=== PATIENT | male | born 1940 | race Caucasian/White ===

== ENCOUNTER 2018-05-17 06:53 | Day surgery (SDC) | payer MEDICARE, BC ==
--- NOTE | 2018-05-13 10:36 | HP ---
CHIEF COMPLAINT: Cervical spine osteophytes causing dysphagia. HISTORY OF PRESENT ILLNESS: Mr. Alvarez is a 77-year-old male who presents with symptoms of dysphagia that started 3-4 years ago which has gotten worse recently. He has visited Dr. Pineda ENT and had a video swallow study which has been completed and shows large anterior osteophytes in his cervical spi ne. He has no neurological deficits or paralysis at this time. He has no other treatment options fo r this problem other than surgery. REVIEW OF SYSTEMS: A 10-point review of systems has been completed and is otherwise negative unless stated in the above HPI. PAST MEDICAL HISTORY: Hypertension and anterior cervical osteophytes. FAMILY HISTORY: Noncontributory. SOCIAL HISTORY: He is a nonsmoker, retired, , and he has 1 child. MEDICATIONS: [place] thyroid, Rosuvastatin, calcium, losartan, potassium, omeprazole, aspirin 81, Hum fidelina, lorazepam. ALLERGIES: No known drug allergies. PHYSICAL EXAMINATION: HEENT: Normocephalic, atraumatic. Hearing is intact. Mucous membranes are moist. Trachea is midli ne. No masses are noted. Dysphagia with swallowing. Eyes: Pupils are equal and round, reactive to light. Extraocular movements are intact. Sclera is white. Nonicterus. PSYCHIATRIC: Normal mood and affect. CARDIOVASCULAR/PULMONARY: No cyanosis or clubbing noted. Intact pulses. Breathing room air. EXTREMITIES: Motor upper and lower extremities, 5/5 strength bilateral with no focal muscular defici ts or sensory deficits. NEUROLOGIC: Gait and station are normal, alert and oriented x3. Normal fund of knowledge. IMAGING: Barium swallow study at [facility] shows multiple osteophytes in the cervical spine. ASSESSMENT: Dysphagia and osteophytes. PLAN: Dr. Banerjee has offered to remove the anterior osteophytes that are causing the dysphagia. We have discussed the risks and benefits and alternatives, possible complications with Mr. Alvarez. Po ssible risks include, but are not limited to bleeding, infection, nerve damage, weakness, paralysis, ventilator dependence, wheelchair dependence, loss of vision, or cardiopulmonary complications of ane sthesia or . Long-term complications have been discussed, but are not limited to spinal instabi lity or future surgery. The patient states his understanding and is willing to proceed with surgery. The patient should not be on aspirin for at least a week.
[2018-05-17] MEDS ORDERED: Sodium Chloride 0.9% 10 ML ONE (08:04)
[2018-05-17] MEDS ORDERED: Thrombin 5000 UNITS/5 ML VIAL ONE (08:04)
[2018-05-17 08:10] LABS: #Basophils 0.1 thou/uL (0.0-0.2); #Eosinphils 0.3 thou/uL (0.0-0.7); #Lymphocytes 3.2 thou/uL (1.20-3.40); #Monocytes 0.8 thou/uL (0.11-0.59); #Neutrophils 4.2 thou/uL (1.40-6.50); %Basophils 1.1 % (0.0-1.0); %Eosinophils 3.6 % (0.0-10.0); %Lymphocytes 36.6 % (21.0-51.0); %Monocytes 9.3 % (0.0-10.0); %Neutrophils 49.3 % (42.0-75.0); Hemoglobin 14.3 g/dL (14.0-18.0); Mean Corpuscular HGB CONC 33.6 g/dL (32.0-36.0); Mean Corpuscular Hemoglobin 31.5 pg (27.0-31.0); Mean Corpuscular Volume 93.8 fL (78.0-98.0); Mean Platelet Volume 6.4 fL (7.4-10.4); Platelet Count 253 thou/uL (130-400); RBC Distribution Width 11.4 % (11.5-14.5); Red Blood Cell (RBC) Count 4.53 mill/uL (4.70-6.10); White Blood Cell (WBC) Count 8.6 thou/uL (4.8-10.8)
[2018-05-17 08:17] LABS: Prothrombin Time 13.2 SEC (12.0-14.7)
[2018-05-17 08:21] LABS: Anion Gap 10 mmol/L (10-20); BUN (Urea Nitrogen) 9 mg/dL (8.4-25.7); Calc. Creatinine Clearance 61 mL/min (70-130); Calcium 9.8 mg/dL (7.8-10.44); Carbon Dioxide 31 mmol/L (23-31); Chloride 104 mmol/L (98-107); Estimated GFR-MDRD 69; Glucose 104 mg/dL (83-110); Potassium 4.2 mmol/L (3.5-5.1); Sodium 141 mmol/L (136-145)
[2018-05-17] MEDS ORDERED: CEFAZOLIN/Water 2 GM/20 ML SYRINGE ONE (08:23)
[2018-05-17] MEDS ORDERED: Fentanyl 100 MCG/2 ML VIAL ONE ×2 (09:25→10:20)
[2018-05-17] MEDS ORDERED: HYDROmorphone 0.5 MG/0.5 ML SYRINGE ONE (11:40)
--- NOTE | 2018-05-17 12:06 | OP ---
DATE OF PROCEDURE: 05/17/2018 SURGEON: Katelynn Banerjee M.D. NURSING STUDENT: Sendy Quintana PA-C. PREOPERATIVE INDICATION: Prevent further swallowing difficulty. 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 OPERATIVE PROCEDURE: Open anterior cervical incision, removal of anterior osteophytes at C3, C4, C5, C6, C7. PREOPERATIVE MEDICATION: Ancef 2 grams IV. DRAIN NUMBER: Zero. DRAIN TYPE: None. OPERATIVE DICTATION: The patient was brought to the operating room. General endotracheal anesthesia was induced. The head was supported by a soft headrest and a lateral fluoro radiograph was used to plan our incision. The right side of the neck was sterilely prepped and draped. We opened with a 10 blade knife. We controlled bleeding with bipolar cautery and dissected sharply to the platysma. We cut this muscle in line with our incision and continued our dissection medial to the sternocleidomas toid and lateral to the trachea and the esophagus. We arrived at the prevertebral space. We placed a marker at C4-5 and took a lateral fluoro radiograph to confirm the levels upon which we were operat ing. We then carefully moved the longus colli muscles out of the way and placed a self-retaining ret ractor. We can visualize the large osteophytes from C3 and osteophytes from C3 all the way to C7. U sing bone rongeurs to remove the anterior osteophytes. We used a high-speed drill with a loly bur to drill the anterior surface of the vertebral bodies flat and took a before and after radiograph to confirm adequate removal of anterior osteophytes. We irrigated copiously with bacitracin irrigation . We controlled bleeding with gentle bipolar cautery. Hemostasis was excellent. We closed the woun d in anatomic layers. We applied a sterile dressing. This was a clean case and no contamination.
[2018-05-17] MEDS ORDERED: Dexamethasone 20 MG/5 ML VIAL ONE (15:00)
[2018-05-17] MEDS ORDERED: Ondansetron HCl/PF 4 MG/2 ML Vial ONE (15:00)
[2018-05-17] MEDS ORDERED: PHENYLEPHRINE-NS 100 MCG/ML 10 ML SYRINGE ONE (15:00)
[2018-05-17] MEDS ORDERED: PROPOFOL 200 MG/20 ML VIAL ONE (15:00)
[2018-05-17] MEDS ORDERED: Lidocaine 1% PF 5 ML VIAL ONE (15:00)
[2018-05-17] MEDS ORDERED: Metoclopramide HCl 10 MG/2 ML VIAL ONE (15:00)
[2018-05-17] MEDS ORDERED: Naloxone HCl 0.4 mg/ml Vial ONE (15:00)
[2018-05-17] MEDS ORDERED: Esmolol 100 MG/10 ML VIAL ONE (15:00)
[2018-05-17] MEDS ORDERED: Glycopyrrolate 0.2 MG/ML 5 ML SYRINGE ONE (15:00)
== END 2018-05-17 16:30 | disposition home or self-care (01) ==
LOC: SDC 06:53
PROVIDERS: ATTEND Neurological Surgery
PROC: 0PB30ZZ Excision of Cervical Vertebra, Open Approach (ICD-10-PCS; principal; 2018-05-17)
DX: M35.3 Polymyalgia rheumatica (principal); M25.78 Osteophyte, vertebrae; I10 Essential (primary) hypertension; Z79.82 Long term (current) use of aspirin; Z79.4 Long term (current) use of insulin; Z79.899 Other long term (current) drug therapy
CPT/HCPCS: 36415; 76001; 80048; 85025; 85610; 85730; A4216; J0131; J1100; J1170; J2001; J2310; J2405; J2704; J2765; J3010; J3490

== ENCOUNTER 2019-05-10 03:49 | Inpatient (IN) | payer MEDICARE, BC ==
[2019-05-10] MEDS ORDERED: Acetaminophen 650 MG Suppository PR PRN (04:31)
[2019-05-10] MEDS ORDERED: Ondansetron ODT 4 MG TAB PO PRN (04:31)
[2019-05-10] MEDS ORDERED: Ondansetron PF 4 MG/2 ML Vial IVP PRN (04:31)
[2019-05-10] MEDS ORDERED: Acetaminophen 325 MG TAB PO PRN (04:31)
[2019-05-10 04:51] LABS: Troponin I Less than 0.010 ng/mL (< 0.028)
--- NOTE | 2019-05-10 06:16 | HP ---
PRIMARY CARE DOCTOR: Maximilian Ha MD CODE STATUS: Full code. TIME OF EVALUATION: CHIEF COMPLAINT: Chest pain. HISTORY OF PRESENT ILLNESS: This is a 78-year-old male patient, past medical history of hypothyroidism, hyperlipidemia, hypertension, chronic back pain, came to the hospital after having chest pain that was in the middle of the chest, 2/10, with no clear triggers, no alleviating factors, no specific radiation. The patient had the symptoms for a couple of seconds and then relieved by itself, reported as mild. The patient has no significant personal history of heart problems, however, blood pressure was high when he had the symptoms and also he reported his father with some coronary artery disease at old age. REVIEW OF SYSTEMS: CONSTITUTIONAL: No fever, chills, or generalized weakness. RESPIRATORY: No cough, sputum production, or shortness of breath. CARDIOVASCULAR: The patient has chest pain. No palpitation. GASTROINTESTINAL: No nausea, vomiting, diarrhea, or abdominal pain. SOURCING CONSULTANT: No dizziness, headache, or feeling lightheaded. GENITOURINARY: No burning on urination. EXTREMITIES: No leg swelling. All other systems were reviewed and negative except for the findings mentioned above. PAST MEDICAL HISTORY: As mentioned in the HPI. FAMILY HISTORY: Father with coronary artery disease, at old age. SOCIAL HISTORY: No alcohol, no drugs. Former smoker. PSYCHIATRIC HISTORY: Anxiety. PAST SURGICAL HISTORY: Tonsillectomy, spinal surgery. KNOWN ALLERGIES: No known drug allergies. REPORTED MEDICATIONS: 1. Ativan. 2. [place] Thyroid. 3. Omeprazole. 4. Crestor. 5. Losartan. 6. Humira. 7. Fluticasone. 8. Aspirin. PHYSICAL EXAMINATION: VITAL SIGNS: On presentation, blood pressure of 189/89 with heart rate , temperature 97.3. Pain was 0/10. Oxygen saturation was 98% on room air. GENERAL APPEARANCE: The patient is alert, oriented, in no acute distress. HEENT: Eyes, normal conjunctivae. Moist oral mucosa. Anicteric. No JVD. RESPIRATORY: Bilateral air entry. No rales. No wheezes. Symmetric expansion. CARDIOVASCULAR: Normal rate, regular rhythm. No murmurs. No gallop. No edema. ABDOMEN: Soft, normal bowel sounds. MUSCULOSKELETAL: Baseline range of motion and strength. No tenderness. SKIN: Warm, intact. No pallor. No rash. No redness. Capillary refill seems to be intact. NEURO: No evidence of any new focal weakness. Cranial nerves seem to be intact. PSYCHIATRIC: The patient is in good mood. No anxiety. Optimal judgment. IMAGING STUDIES: EKG was reviewed. The patient has normal sinus rhythm with a rate of 61 with no ectopy. Conduction was normal. ST-segment was normal. Chest x-ray was reviewed, it was negative. LABORATORY DATA: Reviewed. The patient has white count 10.4, hemoglobin 14.4, MCV 91 with platelet count 260. No coagulation was done. Chemistry; sodium 142, potassium 4.3, chloride 105, carbon dioxide 30, anion gap 11, BUN 15, GFR 65, creatinine 1.23, GFR of 57, and glucose 124, calcium 9.4, total bilirubin 0.2, direct bilirubin 0.2, AST 21, ALT 20, alkaline phosphatase is 46. CK 59. Troponin was negative x2. ASSESSMENT AND PLAN: The patient will be placed in the hospital with following medical problems. 1. Chest pain, rule out acute coronary syndrome. The patient has 2 troponins that are negative. The patient will go for a stress test in the morning. We will keep n.p.o. for now. Any further plan, will be dependent on result of the stress test. 2. Uncontrolled hypertension. We will reconcile home medications. We might need to use p.r.n. medications for optimal control. 3. Hypothyroidism. Continue hormone replacement. 4. Gastroesophageal reflux disease, reconcile home medications. 5. Hyperlipidemia. Low-cholesterol diet is advised. Reconcile home medications. 6. Deep venous thrombosis prophylaxis. Job ID: [id number]
[2019-05-10] MEDS ORDERED: Acetaminophen 325 MG TAB ONE (07:58)
[2019-05-10 08:20] LABS: Troponin I 0.016 ng/mL (< 0.028)
--- NOTE | 2019-05-10 13:10 | NM ---
CARDIAC SPECT: CLINICAL HISTORY: 78-year-old male with chest pain, hypertension, and dyslipidemia. TECHNIQUE: A myocardial perfusion scan was performed using the single isotope one day protocol with technetium-9 9m sestamibi. 10 mCi were injected intravenously for the rest exam followed by 31 mCi for the stress exam. Exercise stress was monitored and interpreted by Dr. Rubi. FINDINGS: Homogeneous tracer distribution is seen in the myocardial segments on the rest images. The stress marcia ges demonstrate decreased tracer localization in the distal anterior wall. GATED SPECT LVEF: 71%. WALL MOTION EXAM: Normal. IMPRESSION: Completely reversible distal anterior wall ischemia. POS: OFF
[2019-05-10] MEDS ORDERED: Lorazepam 0.5 MG TAB PO PRN (15:52)
[2019-05-10 15:58] VITALS: BMI 24.5
[2019-05-10 17:25] LABS: Troponin I Less than 0.010 ng/mL (< 0.028)
[2019-05-10] MEDS ORDERED: Communication Order-Pharmacy FS SCH (17:30)
--- NOTE | 2019-05-10 22:56 | CON ---
DATE OF CONSULTATION: HISTORY OF PRESENT ILLNESS: The patient is a pleasant 78-year-old gentleman who presents for evaluation of chest discomfort. The patient has no previous cardiac history. The patient presented to the emergency room with brief episodes of chest pain, these usually last only a few seconds. The patient noted that his blood pressure was elevated and he came to the emergency room for further evaluation. PAST MEDICAL HISTORY: Significant for 1. Hypertension. 2. Dyslipidemia. 3. Ankylosing spondylitis. PAST SURGICAL HISTORY: He has had a neck surgery and a tonsillectomy. SOCIAL HISTORY: He is a former smoker. ALLERGIES: HE HAS NO KNOWN DRUG ALLERGIES. MEDICATIONS: On admission included; 1. Losartan 25 mg one tablet daily. 2. Crestor 20 mg one tablet daily. 3. [place] Thyroid 30 mg one tablet daily. 4. Aspirin 81 daily. 5. Omeprazole 1 tablet daily. FAMILY HISTORY: There is a positive family history, brother had sudden cardiac . PHYSICAL EXAMINATION: GENERAL: This is a well-developed gentleman, in no acute distress. VITAL SIGNS: Blood pressure 172/79. NECK: No jugular venous distention. LUNGS: Clear to auscultation. HEART: Regular rate and rhythm. Normal S1, S2. No murmurs. ABDOMEN: Nondistended. EXTREMITIES: Show no edema. VASCULAR: Radial pulses 2+. LABORATORY DATA: His white blood cell count was 10.4, hemoglobin 14.4, hematocrit 43.4, platelets 260. Sodium was 142, potassium 4.3, chloride 105, bicarbonate 30, BUN 15, creatinine 1.23. Troponin less than 0.01. His EKG revealed him to have normal sinus rhythm with left axis deviation. His Cardiolite stress test, the patient exercised on a Reagan protocol, he developed [address] depression suggestive of ischemia. Cardiolite images revealed him to have normal left ventricular ejection fraction 71% with evidence of anterior ischemia. IMPRESSION: 1. Chest pain, atypical. 2. Abnormal stress test suggestive of severe ischemia. 3. Hypertension. 4. Dyslipidemia. 5. Ankylosing spondylitis. This gentleman presents with atypical chest pain because he had an early positive stress test with evidence of ischemia. I discussed the option of proceeding with cardiac catheterization and the patient agrees to proceed. The risks involved with the procedure including ID, bleeding, stroke, cardiac arrhythmias, and cardiac been explained to the patient. PLAN: Proceed with cardiac catheterization. Job ID: [id number]
[2019-05-11 05:31] LABS: #Basophils 0.1 thou/uL (0.0-0.2); #Eosinphils 0.5 thou/uL (0.0-0.7); #Lymphocytes 3.8 thou/uL (1.20-3.40); #Monocytes 0.9 thou/uL (0.11-0.59); #Neutrophils 5.6 thou/uL (1.40-6.50); %Eosinophils 4.8 % (0.0-10.0); %Lymphocytes 34.8 % (21.0-51.0); %Monocytes 8.5 % (0.0-10.0); %Neutrophils 50.9 % (42.0-75.0); Hemoglobin 14.4 g/dL (14.0-18.0); Mean Corpuscular Hemoglobin 30.9 pg (27.0-31.0); Mean Corpuscular Volume 93.7 fL (78.0-98.0); Mean Platelet Volume 6.4 fL (7.4-10.4); Platelet Count 276 thou/uL (130-400); RBC Distribution Width 12.2 % (11.5-14.5); Red Blood Cell (RBC) Count 4.68 mill/uL (4.70-6.10); White Blood Cell (WBC) Count 10.9 thou/uL (4.8-10.8)
[2019-05-11 05:49] LABS: Anion Gap 11 mmol/L (10-20); BUN (Urea Nitrogen) 12 mg/dL (8.4-25.7); Calc. Creatinine Clearance 62 mL/min (70-130); Calcium 9.4 mg/dL (7.8-10.44); Carbon Dioxide 28 mmol/L (23-31); Chloride 107 mmol/L (98-107); Estimated GFR-MDRD 66; Glucose 92 mg/dL (83-110); Potassium 3.9 mmol/L (3.5-5.1); Sodium 142 mmol/L (136-145)
[2019-05-11] MEDS: Losartan 25 MG TAB PO SCH (06:24)
[2019-05-11] MEDS ORDERED: Lidocaine 1% w/Epinephrine 1:100K 20 ML VIAL ONE (07:01)
[2019-05-11] MEDS ORDERED: Lidocaine 1% (PF) 30 ML VIAL ONE (07:02)
[2019-05-11] MEDS ORDERED: Rosuvastatin 20 MG TAB PO SCH (09:00)
[2019-05-11] MEDS ORDERED: Thyroid 30 MG TAB PO SCH (09:00)
[2019-05-11] MEDS ORDERED: Aspirin 325 MG TAB PO SCH (09:00)
[2019-05-11] MEDS ORDERED: Sodium Chloride 0.9% 200 ML IV PRN (09:06)
[2019-05-11] MEDS ORDERED: Acetaminophen/Codeine 30-300mg Tablet PO PRN ×2 (09:06)
[2019-05-11] MEDS ORDERED: Nitroglycerin 0.4 MG TAB (25 Tab Bottle) SL PRN (09:06)
[2019-05-11] MEDS ORDERED: Atropine Sulfate 1 mg/10 ml Syringe ONE (09:14)
[2019-05-11] MEDS ORDERED: Nitroglycerin 4.9 GM Bottle ONE (09:14)
[2019-05-11] MEDS ORDERED: Nitroglycerin 2% Ointment 1 INCH/1 GM Packet ONE (09:14)
[2019-05-11] MEDS ORDERED: Diazepam 5 MG TAB PO PRN (10:38)
[2019-05-11] MEDS ORDERED: Communication Order-Pharmacy FS ONE (10:38)
--- NOTE | 2019-05-11 11:35 | CON ---
DATE OF CONSULTATION: 05/11/2019 HISTORY OF PRESENT ILLNESS: Mr. Alvarez is a 78-year-old gentleman, who was admitted with fatigue and chest pain. He underwent stress testing, which was positive in his anterior wall. Cardiac catheterization had shown left main stenosis along with critical LAD diagonal disease. He also had mid PDA lesion that appears significant. I have been asked to see him and discuss coronary artery bypass grafting. PAST MEDICAL HISTORY: 1. Ankylosing spondylitis. 2. Hypertension. 3. Dyslipidemia. PAST SURGICAL HISTORY: 1. Neck surgery for a bone spur impinging on his swallowing. 2. Tonsillectomy. ALLERGIES: NONE. MEDICATIONS: At home are noted. REVIEW OF SYSTEMS: Ten-point review of systems is performed and is negative except as above. PHYSICAL EXAMINATION: GENERAL: This is a well-developed, well-nourished, thin gentleman, resting comfortably in the recovery area. VITAL SIGNS: Heart rate is 85 and regular, blood pressure is 130/72. Height is 5 feet and 10 inches, weight is 171 pounds, and BSA is 1.96. HEENT: Sclerae are nonicteric. Pupils are equal and round bilaterally. NECK: Supple. He has no carotid bruits. His neck is freely mobile and extends well. CHEST: Clear bilaterally. HEART: Heart rhythm is regular. ABDOMEN: Soft and nontender without mass. EXTREMITIES: No edema. VASCULAR: He has palpable carotid, radial, femoral, and dorsalis pedis pulses bilaterally. VENOUS: There are no venous varicosities or venous stasis changes. PSYCHIATRIC: He is awake, alert, and oriented to person, place, and time. IMAGING DATA: Chest x-ray is clear bilaterally with normal cardiac silhouette. LABORATORY: Hemoglobin is 14.4, platelet count is 276,000. Creatinine is 1.09, potassium is 3.9. ASSESSMENT AND PLAN: This is a 78-year-old gentleman with left main stenosis and critical left ascending descending diagonal disease with anterior wall ischemia on nuclear scan. The risks, benefits, and options of coronary artery bypass grafting were discussed with he and his family and they are agreeable to proceed. Potential distal targets include left ascending descending, diagonal, PDA, and ramus intermedius. Job ID: [id number] [facility]
[2019-05-11] MEDS ORDERED: Iopamidol 370 76% 100 ML VIAL ONE (12:56)
[2019-05-11] MEDS ORDERED: Nitroglycerin 2% Ointment 1 INCH/1 GM Packet TOP SCH (13:15)
--- NOTE | 2019-05-11 15:51 | PDOC.PN ---
- Subjective Encounter Start Date: 05/11/19 Encounter Start Time: 15:50 Patient lying in bed with family at bedside. He is s/p heart cath which showed multi CAD. He denies current chest pain, palpitations or shortness of breath. Dr Bruno consulted who plans for CABG tomorrow - Objective Resuscitation Status - Order Detail: 05/10/19 04:31 Resuscitation Status Routine Resuscitation Status: FULL: Full Resuscitation MAR Reviewed: Yes Vital Signs & Weight: Vital Signs (12 hours) Temp Pulse Resp BP Pulse Ox 05/11/19 11:42 97.3 F L 67 16 120/74 100 05/11/19 11:30 73 16 132/70 05/11/19 07:20 97.5 F L 73 16 132/70 97 05/11/19 04:28 98.4 F 87 18 112/65 98 Weight Admit Weight 171 lb Weight 171 lb I&O: 05/10/19 05/11/19 05/12/19 06:59 06:59 06:59 Intake Total 930 Balance 930 Result Diagrams: 05/11/19 04:40 05/11/19 04:40 Radiology Reviewed by me: Yes Phys Exam - Physical Examination Constitutional: NAD HEENT: moist MMs, oral pharynx no lesions Neck: no nodes, full ROM Respiratory: no wheezing, clear to auscultation bilateral Cardiovascular: RRR, no significant murmur Gastrointestinal: soft, positive bowel sounds Musculoskeletal: no edema, pulses present Neurological: non-focal, moves all 4 limbs Psychiatric: normal affect, A&O x 3 Skin: no rash, cap refill <2 seconds Dx/Plan (1) CAD (coronary artery disease) Code(s): I25.10 - ATHSCL HEART DISEASE OF [place] CORONARY ARTERY W/O ANG PCTRS Status: Acute (2) Chest pain Code(s): R07.9 - CHEST PAIN, UNSPECIFIED Status: Acute (3) HTN (hypertension) Code(s): I10 - ESSENTIAL (PRIMARY) HYPERTENSION Status: Acute (4) HLD (hyperlipidemia) Code(s): E78.5 - HYPERLIPIDEMIA, UNSPECIFIED Status: Acute (5) Ankylosing spondylitis Code(s): M45.9 - ANKYLOSING SPONDYLITIS OF UNSPECIFIED SITES IN SPINE Status: Acute - Plan cont current plan of care, plan discussed w/ family * Continue medical management * Cardiology following along with CT surgery * Plan for CABG tomorrow with patient multi CAD * Currently stable * Monitor BP and other vitals * Recheck CBC and BMP in am * Transition patient to inpatient as he will undergo CABG * Further management and disposition pending CABG and patient progress
[2019-05-11] MEDS: Nitroglycerin 2% Ointment 1 INCH/1 GM Packet TOP SCH ×2 (18:36→23:20)
[2019-05-11] MEDS ORDERED: Oxymetazoline HCl 0.05% ( 15 ML ) NASAL PRN (19:51)
[2019-05-11] MEDS ORDERED: Oxymetazoline HCl 0.05% (30 ML BOT) NS PRN (21:30)
[2019-05-12] MEDS: Losartan 25 MG TAB PO SCH (06:02)
[2019-05-12] MEDS: Nitroglycerin 2% Ointment 1 INCH/1 GM Packet TOP SCH ×2 (06:03→19:18)
[2019-05-12] MEDS ORDERED: Bupivacaine HCl 0.5%/Epinephrine 1:200,000/PF 30 ml Vial ONE (06:30)
[2019-05-12] MEDS ORDERED: Dexamethasone 4 mg/ml Vial ONE (06:30)
[2019-05-12] MEDS ORDERED: Albumin 5% 500 ML ONE (06:30)
[2019-05-12] MEDS ORDERED: Heparin 10,000 UNITS/1 ML VIAL 30,000 UNITS in Sodium Chloride 0.9% 1,000 ML FS SCH (06:45)
[2019-05-12] MEDS ORDERED: Midazolam HCl 5 mg/5 ml Vial ONE (06:51)
[2019-05-12] MEDS ORDERED: Fentanyl 250 MCG/5 ML VIAL ONE ×2 (06:51)
[2019-05-12] MEDS ORDERED: Midazolam HCl 2 mg/2 ml Vial ONE ×2 (07:07→07:09)
[2019-05-12] MEDS ORDERED: CEFAZOLIN 2 GM in Premix Bag 1 BAG IVPB SCH (07:30)
[2019-05-12] MEDS ORDERED: Phenylephrine HCL 10 MG/ML VIAL ONE (09:11)
[2019-05-12 11:44] LABS: Base Excess (BEa) -4.7 mEq/L (-2.0 to +3.0); CO2 Tension 41.3 mmHg (35.0-45.0); Calcium, Ionized 1.05 mmol/L (1.12-1.30); Carboxyhemoglobin (COHb) 0.6 gm% (0.0-3.0); Hemoglobin (Hb) 12.9 g/dL (14.0-18.0); O2 Tension (PaO2) 260.2 mmHg (> 70.0); Potassium - ABG Lab 3.89 mmol/L (3.70-5.30); pH, Arterial 7.33 (7.35-7.45)
[2019-05-12 11:45] LABS: ALV-art Gradient 115.975 (0-20); Puncture Site LINE
[2019-05-12] MEDS ORDERED: Mag-Al 1200 mg/1200 mg/30 ML UDCUP PO PRN (12:03)
[2019-05-12] MEDS ORDERED: Fentanyl 100 MCG/2 ML VIAL SLOW IVP PRN ×2 (12:03)
[2019-05-12] MEDS ORDERED: Ondansetron PF 4 MG/2 ML Vial IVP PRN (12:03)
[2019-05-12] MEDS ORDERED: Bisacodyl 5 MG TAB PO PRN (12:03)
[2019-05-12] MEDS ORDERED: Potassium Chloride 20 MEQ/100 ML PREMIX BAG IVPB PRN (12:03)
[2019-05-12] MEDS ORDERED: hydrALAZINE 20 MG/ML VIAL SLOW IVP PRN (12:03)
[2019-05-12] MEDS ORDERED: Bisacodyl 10 MG SUPP PR PRN (12:03)
[2019-05-12] MEDS ORDERED: Nitroglycerin 50 MG/250 ML BOT 250 ML IVPB PRN (12:03)
[2019-05-12] MEDS ORDERED: HYDROcodone/Acetaminophen 5/325 mg Tablet PO PRN ×2 (12:03)
[2019-05-12] MEDS ORDERED: Morphine 4 MG/ML VIAL SLOW IVP PRN (12:03)
[2019-05-12] MEDS ORDERED: Guaifenesin DM 100-10/5 ML UDCUP PO PRN (12:03)
[2019-05-12] MEDS ORDERED: D5 1/2 NS w/20 mEq KCL 1,000 ML IV SCH (12:03)
[2019-05-12] MEDS ORDERED: Acetaminophen 325 MG TAB PO PRN (12:03)
[2019-05-12] MEDS ORDERED: Norepinephrine 8 MG/0.9% NS 250 ML IVPB PRN (12:03)
[2019-05-12 12:11] LABS: Hemoglobin 12.7 g/dL (14.0-18.0); Mean Corpuscular HGB CONC 32.4 g/dL (32.0-36.0); Mean Corpuscular Hemoglobin 30.4 pg (27.0-31.0); Mean Corpuscular Volume 93.7 fL (78.0-98.0); Mean Platelet Volume 6.8 fL (7.4-10.4); Platelet Count 196 thou/uL (130-400); RBC Distribution Width 12.2 % (11.5-14.5); Red Blood Cell (RBC) Count 4.19 mill/uL (4.70-6.10); White Blood Cell (WBC) Count 23.9 thou/uL (4.8-10.8)
[2019-05-12 12:13] LABS: INR-International Normal Ratio 1.3; PTT 31.3 SEC (22.9-36.1); Prothrombin Time 16.5 SEC (12.0-14.7)
--- NOTE | 2019-05-12 12:13 | RAD ---
EXAM: CHEST ONE VIEW HISTORY: Post open heart surgery. COMPARISON: 05/10/2019. FINDINGS: Endotracheal tube is noted in place with the tip overlying the T4 vertebral body and above the level of mamta. A right subclavian central venous catheter is in place with tip overlying the SVC. Mediastinal drain and left-sided thoracostomy tube are noted in place. There have been interval posts urgical changes related to CABG. Cardiac silhouette and pulmonary vasculature are within normal limits. No pneumothorax or pleural effusion is identified, and the lungs are clear. Calcifications ar e again seen overlying the medial aspect right lung base. The osseous structures are intact. Vascular calcifications are seen in the thoracic aorta. IMPRESSION: Postsurgical changes related to interval CABG. Lines and tubes are in place as described above.
[2019-05-12] MEDS ORDERED: Magnesium 2 GM/50 ML 2 GM in Premix Bag 1 BAG IVPB SCH (12:15)
[2019-05-12 12:34] LABS: Band 6 % (5-11); Eosinophils 5 % (0-10); Lymphocytes 21 % (21-51); MDiff Complete? YES; Monocytes 10 % (0-10); Neutrophil 58 % (42-75); Platelet Morphology Comment Appears Adequate; RBC Morphology Normal
[2019-05-12] MEDS: Ketorolac Tromethamine 30 MG/ML VIAL IVP SCH ×2 (12:39→17:32)
[2019-05-12 12:45] LABS: Anion Gap 12 mmol/L (10-20); BUN (Urea Nitrogen) 14 mg/dL (8.4-25.7); Calc. Creatinine Clearance 66 mL/min (70-130); Calcium 7.5 mg/dL (7.8-10.44); Carbon Dioxide 20 mmol/L (23-31); Chloride 110 mmol/L (98-107); Estimated GFR-MDRD 70; Glucose 135 mg/dL (83-110); Potassium 4.2 mmol/L (3.5-5.1); Sodium 138 mmol/L (136-145)
--- NOTE | 2019-05-12 13:00 | OP ---
DATE OF PROCEDURE: 05/12/2019 PREOPERATIVE DIAGNOSIS: Coronary artery disease/hypertension/hyperlipidemia. POSTOPERATIVE DIAGNOSIS: Coronary artery disease/hypertension/hyperlipidemia. PROCEDURES PERFORMED: Coronary artery bypass grafting x4 -: 1. Left internal mammary to 1.5 mm distal LAD - good conduit, small target. 2. Reverse saphenous vein to 2.0 mm diagonal - good conduit in target. 3. Reverse saphenous vein to 2.0 mm ramus - good conduit target. 4. Reverse saphenous vein to 2.0 mm distal PDA - good conduit target. TOOL GRINDER OPERATOR EXTERNAL SURGEON: Dr. Ren Magana. ANESTHESIA: General endotracheal - Dr. Ricky Gray. PUMP TIME: 72 minutes. CROSS-CLAMP TIME: 42 minutes. LOW-CORE TEMP: 34 degrees Celsius. FLY WORKER: Rashmi Jeong. DRAINS: 24-[place] chest tubes x2. DRIPS: None. TRANSFUSIONS: None. DESCRIPTION OF PROCEDURE: After consent was obtained, the patient was brought to the operating room and placed supine position on the operating table. Appropriate central line was placed and general endotracheal anesthesia was induced. Chest and the legs were prepped and draped in usual sterile fashion. Greater saphenous vein was harvested from the left lower extremity utilizing an endoscopic technique from groin to mid calf. The wound was irrigated and closed in layers. Median sternotomy was performed. Left internal mammary artery was harvested as a pedicle graft. The patient was systemically heparinized. Distal pedicle was divided and infused with papaverine. Thymic fat and pericardium were divided with electrocautery. Pericardial stay sutures were placed. Aortic and atrial cannulation was performed. After adequate heparinization, retrograde prime was performed. The patient was placed on cardiopulmonary bypass. Distal targets were marked. Aortic cross-clamp was applied and antegrade sanguineous cardioplegic arrest was obtained. 1 L of antegrade cold [place] cardioplegia was given. Topical cold solution was used. Reverse saphenous vein was anastomosed to PDA in an end-to-side fashion with running 7-0 Prolene suture. Anastomosis was tested and was hemostatic. Reverse saphenous vein was anastomosed to the ramus in an end-to-side fashion with running 7-0 Prolene suture. Anastomosis was tested and was hemostatic. Reverse saphenous vein was anastomosed to diagonal in an end-to-side fashion with running 7-0 Prolene suture. Anastomosis was tested and was hemostatic. The mammary artery was brought through a window in the pericardium and anastomosed to the distal LAD with running 7-0 Prolene suture. On release of the mammary clamps, there was good hooding of the anastomosis. There was good distal flow. Pedicle was secured with interrupted 6-0 Prolene suture. Cross-clamp was removed and partial occluding clamp placed. Saphenous veins to the ramus and PDA were anastomosed to the aortic root. Saphenous vein to the diagonal was anastomosed to the side wall of the ramus graft. Partial occluding clamp was removed and graft was deaired. Anastomoses were inspected for hemostasis, which was good. The patient was warmed and weaned from cardiopulmonary bypass. After resumption of sinus rhythm, good hemodynamics, temperature greater than 36.5, bypass was discontinued. Transfusion was given. Protamine was administered. Decannulation was performed. A pursestring suture was secured. Both aortic and atrial cannulation sites were reinforced with 4-0 Prolene suture. 24-[place] chest tubes were placed in the mediastinum. The sternum was treated with vancomycin paste. After adequate hemostasis had been confirmed, sternum was closed with #7 wire. Sternum was treated with platelet rich plasma. Wire was twisted. Wounds were irrigated and treated with platelet poor plasma, closed in multiple layers. Needle, sponge, and instrument counts were all reported as correct at the end of the procedure. The patient tolerated the procedure well, was transferred to the intensive care unit in stable condition. Job ID: [id number]
[2019-05-12] MEDS: CEFAZOLIN 2 GM in Premix Bag 1 BAG IVPB SCH ×2 (14:14→21:16)
[2019-05-12] MEDS: Hetastarch 6% 500 ML 500 ML IVPB PRN (17:06)
[2019-05-12 17:21] LABS: Hemoglobin 11.1 g/dL (14.0-18.0)
[2019-05-12 17:36] LABS: Potassium 4.1 mmol/L (3.5-5.1)
--- NOTE | 2019-05-12 17:58 | PDOC.PN ---
- Subjective Encounter Start Date: 05/12/19 Encounter Start Time: 14:30 Feels great. Minimal discomfort. - Objective Resuscitation Status - Order Detail: 05/10/19 04:31 Resuscitation Status Routine Resuscitation Status: FULL: Full Resuscitation Vital Signs & Weight: Vital Signs (12 hours) Pulse Resp Pulse Ox 05/12/19 16:00 100 05/12/19 14:03 61 05/12/19 14:00 14 05/12/19 11:35 79 05/12/19 11:30 12 100 Weight Admit Weight 171 lb Weight 171 lb Most Recent Monitor Data Heart Rate from ECG 84 NIBP 91/61 NIBP BP-Mean 71 Respiration from ECG 22 SpO2 100 I&O: 05/11/19 05/12/19 05/13/19 06:59 06:59 06:59 Intake Total 747 444 7819 Output Total 1555 Balance 930 400 -262 Result Diagrams: 05/12/19 17:00 05/12/19 17:00 Phys Exam - Physical Examination Respiratory: no wheezing, no rales, no rhonchi, clear to auscultation bilateral Cardiovascular: RRR, no significant murmur Gastrointestinal: soft, non-tender, no distention, positive bowel sounds Musculoskeletal: no edema Psychiatric: normal affect, A&O x 3 Dx/Plan (1) CAD (coronary artery disease) Code(s): I25.10 - ATHSCL HEART DISEASE OF [place] CORONARY ARTERY W/O ANG PCTRS Status: Acute (2) Chest pain Code(s): R07.9 - CHEST PAIN, UNSPECIFIED Status: Acute (3) HLD (hyperlipidemia) Code(s): E78.5 - HYPERLIPIDEMIA, UNSPECIFIED Status: Acute (4) HTN (hypertension) Code(s): I10 - ESSENTIAL (PRIMARY) HYPERTENSION Status: Acute (5) Status post aorto-coronary artery bypass graft Code(s): Z95.1 - PRESENCE OF AORTOCORONARY BYPASS GRAFT Status: Acute (6) Hypothyroid Code(s): E03.9 - HYPOTHYROIDISM, UNSPECIFIED Status: Acute (7) Ankylosing spondylitis Code(s): M45.9 - ANKYLOSING SPONDYLITIS OF UNSPECIFIED SITES IN SPINE Status: Acute - Plan * Post 4 v CABG. * Doing really well. * Continue drains, etc per [facility]. * Statin, ASA. * thyroid replacement
[2019-05-12] MEDS ORDERED: Famotidine/PF 20 mg/2ml Vial SLOW IVP SCH (21:00)
[2019-05-13] MEDS: Ketorolac Tromethamine 30 MG/ML VIAL IVP SCH ×5 (00:01→23:38)
[2019-05-13] MEDS: Hetastarch 6% 500 ML 500 ML IVPB PRN (04:20)
[2019-05-13 04:32] LABS: #Monocytes 1.5 thou/uL (0.11-0.59); #Neutrophils 12.8 thou/uL (1.40-6.50); %Basophils 0.3 % (0.0-1.0); %Eosinophils 0.1 % (0.0-10.0); %Lymphocytes 6.5 % (21.0-51.0); %Neutrophils 83.2 % (42.0-75.0); Hemoglobin 10.1 g/dL (14.0-18.0); Mean Corpuscular HGB CONC 33.3 g/dL (32.0-36.0); Mean Corpuscular Hemoglobin 31.8 pg (27.0-31.0); Mean Corpuscular Volume 95.5 fL (78.0-98.0); Mean Platelet Volume 6.4 fL (7.4-10.4); Platelet Count 153 thou/uL (130-400); RBC Distribution Width 12.2 % (11.5-14.5); Red Blood Cell (RBC) Count 3.17 mill/uL (4.70-6.10); White Blood Cell (WBC) Count 15.4 thou/uL (4.8-10.8)
[2019-05-13 04:52] LABS: Anion Gap 8 mmol/L (10-20); BUN (Urea Nitrogen) 13 mg/dL (8.4-25.7); Calc. Creatinine Clearance 69 mL/min (70-130); Calcium 7.9 mg/dL (7.8-10.44); Carbon Dioxide 25 mmol/L (23-31); Chloride 111 mmol/L (98-107); Estimated GFR-MDRD 73; Glucose 135 mg/dL (83-110); Potassium 4.3 mmol/L (3.5-5.1); Sodium 140 mmol/L (136-145)
[2019-05-13] MEDS: CEFAZOLIN 2 GM in Premix Bag 1 BAG IVPB SCH (05:12)
[2019-05-13] MEDS: Magnesium 2 GM/50 ML 2 GM in Premix Bag 1 BAG IVPB SCH (08:03)
--- NOTE | 2019-05-13 08:06 | RAD ---
XR Chest 1 View Portable HISTORY: Postop open heart surgery COMPARISON: Previous day FINDINGS: Changes of median sternotomy are again seen. The endotracheal tube has been removed in the interim. Other line and tube placements are otherwise unchanged in position. The heart size normal. No lobar consolidation, pneumothoraces or large effusions are seen.
[2019-05-13] MEDS ORDERED: Aspirin 325 MG TAB PO SCH (09:00)
[2019-05-13] MEDS ORDERED: Nitroglycerin 0.4 MG TAB (25 Tab Bottle) SL PRN (10:59)
[2019-05-13] MEDS ORDERED: Artificial Tears 18 DROP/0.9 ML EA EYE PRN (10:59)
[2019-05-13] MEDS ORDERED: Mineral Oil ENEMA PR PRN (10:59)
[2019-05-13] MEDS ORDERED: traMADol HCl 50 MG TAB PO PRN (10:59)
[2019-05-13] MEDS ORDERED: Milk Of Magnesia 30 ML UDCUP PO PRN (10:59)
[2019-05-13] MEDS ORDERED: Zolpidem Tartrate 5 MG TAB PO PRN (10:59)
[2019-05-13] MEDS ORDERED: Mag-Al 1200 mg/1200 mg/30 ML UDCUP PO PRN (10:59)
[2019-05-13] MEDS ORDERED: Guaifenesin DM 100-10/5 ML UDCUP PO PRN (10:59)
[2019-05-13] MEDS ORDERED: Bisacodyl 10 MG SUPP PR PRN (10:59)
[2019-05-13] MEDS ORDERED: Bisacodyl 5 MG TAB PO PRN (10:59)
--- NOTE | 2019-05-13 12:08 | EKG ---
Test Reason : Blood Pressure : / mmHG Vent. Rate : 059 BPM Atrial Rate : 059 BPM P-R Int : 146 ms QRS Dur : 078 ms QT Int : 406 ms P-R-T Axes : 032 -39 045 degrees QTc Int : 401 ms Sinus bradycardia Left axis deviation Abnormal ECG Confirmed by SINDHU DOMINGUEZ DO ([id number]), proposal editor SYLVIE HERZOG ([id number]) on 05/13/2019 12:08:01 PM Referred By: Confirmed By:SINDHU DOMINGUEZ DO
[2019-05-13] MEDS: diphenhydrAMINE 25 MG CAP PO PRN (20:54)
[2019-05-13] MEDS: Rosuvastatin 20 MG TAB PO SCH (20:55)
--- NOTE | 2019-05-13 20:56 | PDOC.PN ---
- Subjective Encounter Start Date: 05/13/19 Encounter Start Time: 14:00 Feels great. No complaints. No pain. - Objective Resuscitation Status - Order Detail: 05/10/19 04:31 Resuscitation Status Routine Resuscitation Status: FULL: Full Resuscitation Vital Signs & Weight: Vital Signs (12 hours) Temp Pulse Pulse BP BP Pulse Ox Pulse Ox 05/13/19 16:00 98.4 F 05/13/19 14:08 79 78 106/56 L 116/59 L 100 100 05/13/19 12:00 98.0 F Weight Admit Weight 171 lb Weight 171 lb Most Recent Monitor Data Heart Rate from ECG 80 NIBP 125/61 NIBP BP-Mean 82 Respiration from ECG 20 SpO2 100 I&O: 05/12/19 05/13/19 05/14/19 06:59 06:59 06:59 Intake Total 400 2784 1092 Output Total 2607 755 Balance 400 177 337 Result Diagrams: 05/13/19 04:25 05/13/19 04:25 Additional Labs: Accuchecks 05/12/19 05/12/19 05/12/19 11:06 09:57 09:23 POC Glucose 125 H 116 H 121 H 05/12/19 05/12/19 08:50 07:54 POC Glucose 113 H 114 H Phys Exam - Physical Examination Constitutional: NAD Respiratory: no wheezing, no rales, no rhonchi, clear to auscultation bilateral Cardiovascular: RRR, no significant murmur Gastrointestinal: soft, non-tender, no distention, positive bowel sounds Musculoskeletal: no edema Dx/Plan (1) CAD (coronary artery disease) Code(s): I25.10 - ATHSCL HEART DISEASE OF [place] CORONARY ARTERY W/O ANG PCTRS Status: Acute (2) Chest pain Code(s): R07.9 - CHEST PAIN, UNSPECIFIED Status: Acute (3) HLD (hyperlipidemia) Code(s): E78.5 - HYPERLIPIDEMIA, UNSPECIFIED Status: Acute (4) HTN (hypertension) Code(s): I10 - ESSENTIAL (PRIMARY) HYPERTENSION Status: Acute (5) Status post aorto-coronary artery bypass graft Code(s): Z95.1 - PRESENCE OF AORTOCORONARY BYPASS GRAFT Status: Acute (6) Hypothyroid Code(s): E03.9 - HYPOTHYROIDISM, UNSPECIFIED Status: Acute (7) Ankylosing spondylitis Code(s): M45.9 - ANKYLOSING SPONDYLITIS OF UNSPECIFIED SITES IN SPINE Status: Acute - Plan * Continues to do amazingly well post op. * Transfer to tele. * ASA, Statin. * Post op care per [facility].
[2019-05-14] MEDS: Ketorolac Tromethamine 30 MG/ML VIAL IVP SCH ×4 (05:27→23:31)
[2019-05-14 08:15] LABS: #Eosinphils 0.1 thou/uL (0.0-0.7); #Monocytes 1.2 thou/uL (0.11-0.59); #Neutrophils 7.9 thou/uL (1.40-6.50); %Basophils 0.2 % (0.0-1.0); %Lymphocytes 17.6 % (21.0-51.0); %Monocytes 10.5 % (0.0-10.0); %Neutrophils 70.7 % (42.0-75.0); Hemoglobin 8.6 g/dL (14.0-18.0); Mean Corpuscular HGB CONC 33.2 g/dL (32.0-36.0); Mean Corpuscular Hemoglobin 31.6 pg (27.0-31.0); Mean Corpuscular Volume 95.2 fL (78.0-98.0); Mean Platelet Volume 6.7 fL (7.4-10.4); Platelet Count 140 thou/uL (130-400); RBC Distribution Width 12.2 % (11.5-14.5); Red Blood Cell (RBC) Count 2.73 mill/uL (4.70-6.10); White Blood Cell (WBC) Count 11.2 thou/uL (4.8-10.8)
[2019-05-14 08:23] LABS: ALT (SGPT) 18 U/L (8-55); AST (SGOT) 33 U/L (5-34); Albumin 2.8 g/dL (3.4-4.8); Alkaline Phosphatase 32 U/L (40-150); Anion Gap 8 mmol/L (10-20); BUN (Urea Nitrogen) 21 mg/dL (8.4-25.7); Bilirubin, Total 0.9 mg/dL (0.2-1.2); Calc. Creatinine Clearance 56 mL/min (70-130); Calcium 7.4 mg/dL (7.8-10.44); Carbon Dioxide 25 mmol/L (23-31); Chloride 111 mmol/L (98-107); Estimated GFR-MDRD 55; Globulin 1.6 g/dL (2.4-3.5); Glucose 93 mg/dL (83-110); Potassium 4.3 mmol/L (3.5-5.1); Protein, Total 4.4 g/dL (5.8-8.1); Sodium 140 mmol/L (136-145)
[2019-05-14] MEDS ORDERED: Sodium Chloride 0.9% 500 ML IV SCH (09:15)
[2019-05-14] MEDS: Magnesium 2 GM/50 ML 2 GM in Premix Bag 1 BAG IVPB SCH (10:08)
[2019-05-14] MEDS: Aspirin 325 mg Enteric Coated Tablet PO SCH (10:09)
--- NOTE | 2019-05-14 11:53 | RAD ---
PORTABLE CHEST: Date: 05/14/19 HISTORY: Hypoxia. COMPARISON: Prior day's exam. FINDINGS: Heart size is within normal limits. There are postop sternotomy changes. Slightly increased parenchym al changes in the left base as compared to prior exam, and in the right base, probably related to esme e increasing atelectasis. Right subclavian line is unchanged in appearance. IMPRESSION: Slight worsening to bibasilar lung changes, probably on the basis of atelectasis. POS: [facility]
--- NOTE | 2019-05-14 15:59 | PDOC.PN ---
- Subjective Encounter Start Date: 05/14/19 Encounter Start Time: 12:45 Feeling generally well. No pain. - Objective Resuscitation Status - Order Detail: 05/10/19 04:31 Resuscitation Status Routine Resuscitation Status: FULL: Full Resuscitation Vital Signs & Weight: Vital Signs (12 hours) Temp Pulse Resp BP Pulse Ox 05/14/19 12:00 98.5 F 74 18 100/55 L 95 05/14/19 08:40 98 05/14/19 08:00 95 05/14/19 07:35 12 93/57 L 98 05/14/19 07:22 99.0 F 79 12 81/47 L 90 L 05/14/19 05:30 98.8 F Weight Admit Weight 171 lb Weight 178 lb 4.8 oz Most Recent Monitor Data Heart Rate from ECG 80 NIBP 125/61 NIBP BP-Mean 82 Respiration from ECG 20 SpO2 100 I&O: 05/13/19 05/14/19 05/15/19 06:59 06:59 06:59 Intake Total 2784 1452 Output Total 2607 1155 Balance 177 297 Result Diagrams: 05/14/19 07:54 05/14/19 07:54 Phys Exam - Physical Examination Constitutional: NAD Respiratory: no wheezing, no rales, no rhonchi, clear to auscultation bilateral Gastrointestinal: soft, non-tender, no distention, positive bowel sounds Musculoskeletal: no edema Dx/Plan (1) CAD (coronary artery disease) Code(s): I25.10 - ATHSCL HEART DISEASE OF [place] CORONARY ARTERY W/O ANG PCTRS Status: Acute (2) Chest pain Code(s): R07.9 - CHEST PAIN, UNSPECIFIED Status: Resolved (3) HLD (hyperlipidemia) Code(s): E78.5 - HYPERLIPIDEMIA, UNSPECIFIED Status: Acute (4) HTN (hypertension) Code(s): I10 - ESSENTIAL (PRIMARY) HYPERTENSION Status: Acute (5) Status post aorto-coronary artery bypass graft Code(s): Z95.1 - PRESENCE OF AORTOCORONARY BYPASS GRAFT Status: Acute (6) Hypothyroid Code(s): E03.9 - HYPOTHYROIDISM, UNSPECIFIED Status: Acute (7) Ankylosing spondylitis Code(s): M45.9 - ANKYLOSING SPONDYLITIS OF UNSPECIFIED SITES IN SPINE Status: Acute - Plan * Had mild hypotension this morning. * Gave 500 cc bolus * [facility] stopped beta swapna. * Feels ok now. * CXR with bibasilar atelectasis. * Encouraged ambulation and IS.
--- NOTE | 2019-05-14 18:43 | PDOC.CTH ---
Cardiology Progress Note - Subjective Doing very well. He had a BM yesterday. He has been walking laps every hour on the hour and feeling well. - Objective Vital Signs Temp Pulse Resp BP Pulse Ox 05/14/19 12:00 98.5 F 74 18 100/55 L 95 05/14/19 08:40 98 05/14/19 08:00 95 05/14/19 07:35 12 93/57 L 98 05/14/19 07:22 99.0 F 79 12 81/47 L 90 L Admit Weight 171 lb Weight 178 lb 4.8 oz 05/13/19 05/14/19 05/15/19 06:59 06:59 06:59 Intake Total 2784 1452 Output Total 2607 1155 Balance 177 297 - Physical Examination General/Neuro: alert & oriented x3, NAD Neck: no JVD present Lungs: CTA, unlabored respirations Heart: RRR Abdomen: NT/ND Extremities: + edema B (Trace) - Telemetry Telemetry Rhythm: NSR - Labs Result Diagrams: 05/14/19 07:54 05/14/19 07:54 Troponin/CKMB Troponin I Less than 0.010 ng/mL (< 0.028) 05/10/19 16:32 - Assessment/Plan 1. Multivessel CAD s/p CABG 2. CABG x 4. PLAN: - Aspirin and statin for life. - BB and ACEI once BP allows, currently borderline low. - PT and ambulation as tolerated.
[2019-05-14] MEDS: diphenhydrAMINE 25 MG CAP PO PRN (20:44)
[2019-05-14] MEDS: Rosuvastatin 20 MG TAB PO SCH (20:44)
[2019-05-15] MEDS: Ketorolac Tromethamine 30 MG/ML VIAL IVP SCH (05:55)
[2019-05-15 08:48] VITALS: TEMP 98.6
[2019-05-15] MEDS: Aspirin 325 mg Enteric Coated Tablet PO SCH (09:06)
[2019-05-15 09:08] LABS: #Basophils 0.1 thou/uL (0.0-0.2); #Eosinphils 0.2 thou/uL (0.0-0.7); #Lymphocytes 1.9 thou/uL (1.20-3.40); #Monocytes 0.6 thou/uL (0.11-0.59); #Neutrophils 7.6 thou/uL (1.40-6.50); %Basophils 0.5 % (0.0-1.0); %Eosinophils 2.2 % (0.0-10.0); %Lymphocytes 17.9 % (21.0-51.0); %Monocytes 6.1 % (0.0-10.0); %Neutrophils 73.3 % (42.0-75.0); Hemoglobin 8.6 g/dL (14.0-18.0); Mean Corpuscular HGB CONC 32.5 g/dL (32.0-36.0); Mean Corpuscular Hemoglobin 31.1 pg (27.0-31.0); Mean Corpuscular Volume 95.7 fL (78.0-98.0); Mean Platelet Volume 6.8 fL (7.4-10.4); Platelet Count 165 thou/uL (130-400); RBC Distribution Width 12.2 % (11.5-14.5); Red Blood Cell (RBC) Count 2.77 mill/uL (4.70-6.10); White Blood Cell (WBC) Count 10.3 thou/uL (4.8-10.8)
[2019-05-15 12:18] VITALS: BP 112/60
--- NOTE | 2019-05-16 01:22 | DIS ---
DATE OF ADMISSION: 05/10/2019 DATE OF DISCHARGE: 05/15/2019 DIAGNOSES: 1. Coronary artery disease with positive stress test and three-vessel disease on catheterization, status post coronary artery bypass grafting. 2. Hypertension. 3. Ankylosing spondylitis. PROCEDURES: 1. Cardiac catheterization. 2. Coronary artery bypass grafting x4 -. a. Left internal mammary artery to LAD. b. Saphenous vein graft to diagonal. c. Saphenous vein graft to ramus. d. Saphenous vein graft to PDA. DESCRIPTION OF HOSPITAL STAY: Mr. Alvarez presented through the Emergency Department with chest pain. He underwent stress testing which was positive and subsequent cardiac catheterization revealing severe 3-vessel disease. He was taken to the operating room, underwent coronary artery bypass grafting as above on 05/12. Postoperatively, he had no rhythm issues. He is being discharged to home in good condition to follow up with me in [address] Vega in a month. DISCHARGE MEDICATIONS: 1. Aspirin 325 mg daily. 2. Crestor 20 mg at bedtime. 3. Calder Thyroid 30 mg daily. 4. Note beta-swapna and EVA inhibitor have been held due to hypotension. Job ID: [id number]
--- NOTE | 2019-05-16 01:41 | DIS ---
DATE OF ADMISSION: 05/10/2019 DATE OF DISCHARGE: 05/15/2019 DISCHARGE DIAGNOSES: 1. Coronary artery disease status post coronary artery bypass grafting. 2. Chest pain. 3. Hyperlipidemia. 4. Hypertension. 5. Hypothyroidism. 6. Anemia. 7. History of ankylosing spondylitis. 8. Transient hypotension. HISTORY OF PRESENT ILLNESS: This patient is a 78-year-old male with chronic ankylosing spondylitis, who presented to the emergency department with the complaints of chest pain. The patient reported it was only 2/10 pain in the middle of his chest. His blood pressure was elevated at that time. His troponins were negative. HOSPITAL COURSE: The patient was admitted to the hospital on telemetry, continued to rule out for GA, had a nuclear medicine stress test, which showed completely reversible distal anterior wall ischemia. The patient was seen by Cardiology and the decision was made to undergo heart catheterization. This revealed multi-vessel disease and Dr. Bruno was consulted. The decision was made to go forward with coronary artery bypass grafting and on 05/12, the patient had a DIAMOND to the LAD, saphenous vein grafting to diagonal, ramus, and distal PDA. The patient was moved to the ICU post recovery from there. He did extremely well, had very little pain, was able to move out of the ICU promptly with having no complications. On the telemetry floor, the patient had 1 episode of hypotension with his blood pressure in the 70s and due to that, his beta swapna was discontinued. He also had some anemia with his hemoglobin drifting down to 8.6 on the day of discharge that was rechecked and remained at 8.6. His blood pressure had improved. Therefore, he was felt to be stable for discharge and the discharge was ordered by Dr. Bruno. PHYSICAL EXAMINATION: VITAL SIGNS: On the day of discharge, temperature is 98.6, pulse 81, respirations 18, O2 saturation 94% on room air, BP 112/60. GENERAL: He is awake, alert, oriented, pleasant, and cooperative. HEART: Regular rate and rhythm without murmurs. LUNGS: Clear bilaterally. ABDOMEN: Benign. CHEST: Sternal incision appears in good condition and good health. DISPOSITION: The patient is discharged home. He is to have no driving, no lifting over 15 pounds. He can shower daily, but no baths, hot tubs, or pools. He will be on a heart-healthy diet. He will have a referral to outpatient cardiac rehab. MEDICATIONS: Include; 1. Tramadol 50 mg q.6. 2. He will remain on Humira. 3. Rosuvastatin. 4. Omeprazole. 5. [place] Thyroid. 6. Lorazepam. 7. Aspirin. FOLLOWUP: He will have beta swapna resumed once he is felt to be stable by Cardiology or CV Surgery to do so. He will follow up with Dr. Maximilian Ha, Dr. Bobby Rubi, and Dr. Flip Bruno. He can return to the hospital should he have any problems prior to that time. Job ID: [id number]
== END 2019-05-15 12:15 | disposition home or self-care (01) | DRG 234 ==
LOC: ERS 03:49 → ERHOLD 04:21 → OBSVTOIN 10:11 → 2SW 15:52 → 2NO 05-11 16:36 → CCU 05-12 07:34 → 2NO 05-13 18:58
PROVIDERS: ADMIT Hospitalist; ATTEND Hospitalist
PROC: 4A023N7 Measurement of Cardiac Sampling and Pressure, Left Heart, Percutaneous Approach (ICD-10-PCS; principal; 2019-05-10)
PROC: B2111ZZ Fluoroscopy of Multiple Coronary Arteries using Low Osmolar Contrast (ICD-10-PCS; 2019-05-10)
PROC: B2151ZZ Fluoroscopy of Left Heart using Low Osmolar Contrast (ICD-10-PCS; 2019-05-10)
PROC: 02100Z9 Bypass Coronary Artery, One Artery from Left Internal Mammary, Open Approach (ICD-10-PCS; 2019-05-12)
PROC: 021209W Bypass Coronary Artery, Three Arteries from Aorta with Autologous Venous Tissue, Open Approach (ICD-10-PCS; 2019-05-12)
PROC: 06BQ4ZZ Excision of Left Saphenous Vein, Percutaneous Endoscopic Approach (ICD-10-PCS; 2019-05-12)
PROC: 5A1221Z Performance of Cardiac Output, Continuous (ICD-10-PCS; 2019-05-12)
DX: I25.10 Atherosclerotic heart disease of native coronary artery without angina pectoris (principal); E03.9 Hypothyroidism, unspecified; E78.5 Hyperlipidemia, unspecified; I10 Essential (primary) hypertension; M54.9 Dorsalgia, unspecified; G89.29 Other chronic pain; F41.9 Anxiety disorder, unspecified; M45.9 Ankylosing spondylitis of unspecified sites in spine; D64.9 Anemia, unspecified; I95.9 Hypotension, unspecified; Z87.891 Personal history of nicotine dependence; Z90.89 Acquired absence of other organs; Z79.82 Long term (current) use of aspirin
CPT/HCPCS: 36415; 36416; 71045; 78452; 80048; 80053; 82805; 85025; 85610; 85730; 86850; 86900; 86901; 93005; 93010; 93017; 93458; 93798; 94002; 94150; A9500; C1769; J0461; J0670; J0690; J1100; J1642; J1644; J1885; J2001; J2250; J2370; J3010; J3475; J7050; P9045; Q0163; S0028

== ENCOUNTER 2019-05-18 23:02 | Observation (INO) | payer MEDICARE, BC ==
[2019-05-18 23:34] VITALS: BMI 25.5
[2019-05-19] MEDS ORDERED: diphenhydrAMINE 25 MG CAP PO PRN ×2 (02:22→02:23)
[2019-05-19] MEDS ORDERED: Thyroid 30 MG TAB PO SCH (06:00)
[2019-05-19 06:13] LABS: Eosinophils 5 % (0-10); Hemoglobin 7.8 g/dL (14.0-18.0); Lymphocytes 14 % (21-51); MDiff Complete? YES; Mean Corpuscular HGB CONC 33.6 g/dL (32.0-36.0); Mean Corpuscular Hemoglobin 31.8 pg (27.0-31.0); Mean Corpuscular Volume 94.5 fL (78.0-98.0); Mean Platelet Volume 6.5 fL (7.4-10.4); Monocytes 20 % (0-10); Neutrophil 60 % (42-75); Platelet Count 311 thou/uL (130-400); Platelet Morphology Comment Appears Adequate; RBC Distribution Width 12.3 % (11.5-14.5); Red Blood Cell (RBC) Count 2.44 mill/uL (4.70-6.10); White Blood Cell (WBC) Count 8.7 thou/uL (4.8-10.8)
[2019-05-19 08:38] VITALS: BP 111/60; TEMP 98.3
[2019-05-19] MEDS ORDERED: Aspirin 325 mg Enteric Coated Tablet PO SCH (09:00)
[2019-05-19] MEDS ORDERED: Iron Polysaccharides Complex 150 MG CAP PO SCH (09:00)
[2019-05-19] MEDS ORDERED: Rosuvastatin 20 MG TAB PO SCH (21:00)
== END 2019-05-19 09:49 | disposition home or self-care (01) ==
LOC: 2SW 23:03
PROVIDERS: ADMIT Thoracic Surgery (Cardiothoracic Vascular Surgery); ATTEND Thoracic Surgery (Cardiothoracic Vascular Surgery)
DX: R50.9 Fever, unspecified (principal); M45.9 Ankylosing spondylitis of unspecified sites in spine; Z95.1 Presence of aortocoronary bypass graft
CPT/HCPCS: 85025; G0378; 36415; Q0163

== ENCOUNTER 2019-06-18 14:28 | Emergency (ER) | payer MEDICARE, BC ==
--- NOTE | 2019-06-18 15:20 | ULT ---
Exam: Left lower extremity venous ultrasound with Doppler HISTORY: Pain. Edema. TECHNIQUE: Grayscale, color flow, Doppler imaging and spectral waveform analysis of the left lower ex tremity venous system FINDINGS: There is compressibility, presence of flow and augmentation common femoral vein, femoral vein and pop liteal vein. There is flow in the greater saphenous vein, profunda vein and posterior tibial vein IMPRESSION: No evidence of thrombus in the left lower extremity venous system
== END 2019-06-18 15:50 | disposition home or self-care (01) ==
LOC: ERS 14:28
DX: M79.89 Other specified soft tissue disorders (principal); F41.9 Anxiety disorder, unspecified; K21.9 Gastro-esophageal reflux disease without esophagitis; E78.5 Hyperlipidemia, unspecified; F43.10 Post-traumatic stress disorder, unspecified; E03.9 Hypothyroidism, unspecified

== ENCOUNTER 2022-01-15 12:48 | Outpatient (CLI) | payer MEDICARE, BC | END 2022-01-15 12:49 | disposition home or self-care (01) | LOC: BICRAD 12:48 | PROVIDERS: ATTEND Internal Medicine Rheumatology | DX: M54.2 Cervicalgia (principal); M54.12 Radiculopathy, cervical region | CPT/HCPCS: 72052 ==

== ENCOUNTER 2023-05-01 10:23 | Outpatient (CLI) | payer MEDICARE, BC | END 2023-05-01 10:24 | disposition home or self-care (01) | LOC: RAD 10:23 | PROVIDERS: ATTEND Otolaryngology Otolaryngic Allergy | DX: R13.11 Dysphagia, oral phase (principal); R13.12 Dysphagia, oropharyngeal phase; R63.30 Feeding difficulties, unspecified | CPT/HCPCS: 74230 ==